=== PATIENT | male | born 2000 | race Asian ===

== ENCOUNTER 2022-11-15 10:46 | Emergency (ER) | payer MEDICAID, SELFPAY ==
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
[2022-11-15 11:21] VITALS: BP 127/58; PULSE 88; RESP 18; TEMP 37.3; O2SAT 98; BMI 21.7
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
--- NOTE | 2022-11-15 11:44 | PC.NURSE ---
viral swabs obtained- pt sts he has had subjective fevers, n/v/d x5 days. sts that he had 5 episodes of vomiting last night. pt sts that he took tylenol and something else my mom gave me [facility]
[2022-11-15 12:01] LABS: IDNOW Serial# BCCEAD1C
[2022-11-15 12:02] LABS: COVID-19 Test Negative (Negative)
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
[2022-11-15] MEDS: 0.9 % Sodium Chloride 1,000 ML 999 ML IV ×2 (13:07→14:21)
[2022-11-15 13:09] LABS: MANUAL DIFF FLAG NO
[2022-11-15] MEDS: ondansetron HCL 4 MG/2 ML VIAL IVPUSH (13:09)
[2022-11-15 13:12] LABS: Basophils Absolute Auto 0.1 X10*3/uL (0.0-0.2); Basophils Percent Auto 0.3 % (0-2); Eosinophils Percent Auto 0.3 % (0-4); Hematocrit 43.7 % (42.0-52.0); Hemoglobin 14.9 g/dl (14.0-18.0); Imm Gran Abs Auto 0.05 X10*3/uL (0.00-0.03); Imm Gran Pct Auto 0.3 % (0.0-0.4); Lymphocytes Absolute Auto 1.1 X10*3/uL (1.2-4.9); Lymphocytes Percent Auto 6.6 % (20-40); Mean Corpuscular HGB Conc 34.1 g/dl (31.0-36.0); Mean Corpuscular Hemoglobin 30.7 pg (27.0-33.0); Mean Corpuscular Volume 90.1 fL (80.0-98.0); Mean Platelet Volume 10.8 fL (9.4-12.4); Monocytes Absolute Auto 1.5 X10*3/uL (0.1-1.2); Monocytes Percent Auto 9.1 % (2-11); Neutrophils Absolute Auto 13.3 x10*3/uL (2.0-8.3); Neutrophils Percent Auto 83.4 % (45-73); Platelet Count 199 X10*3/uL (160-400); Red Blood Count 4.85 X10*6/uL (4.60-5.80); Red Cell Distribution Width 11.8 % (11.0-16.0)
--- NOTE | 2022-11-15 13:13 | PC.NURSE ---
pt medicated per MAR - 20G IV placed in r- AC infusing 1L IVF as ordered
[2022-11-15 13:17] LABS: INTERNATIONAL NORM RATIO 1.1 (0.9-1.1); Prothrombin Time 13.7 SEC (11.1-13.3)
[2022-11-15 13:29] LABS: IDNOW Serial# BCCEAD1C; Influenza A Negative (Negative); Influenza B2 Negative (Negative)
[2022-11-15 13:31] LABS: Lactic Acid 0.9 mmol/L (0.5-2.0)
[2022-11-15 13:35] LABS: Anion Gap 16 (12-20); Blood Urea Nitrogen 13 mg/dL (9-16); C Reactive Protein 6.13 mg/dL (< or = 0.50); Calcium 9.8 mg/dL (8.4-10.2); Carbon Dioxide 25 mmol/L (22-29); Chloride 97 mmol/L (96-108); Creatinine Clr Calc Pharmacy 136.1; Estimated Glomerular Filt Rate > 60; Glucose Random 99 mg/dL (60-115); Potassium 3.6 mmol/L (3.3-5.1); Sodium 134 mmol/L (135-145)
[2022-11-15 13:46] VITALS: BP 120/51; PULSE 87; RESP 18; TEMP 37.2; O2SAT 100
[2022-11-15] MEDS: Ketorolac Tromethamine 15 MG/ML VIAL IVPUSH (13:47)
[2022-11-15 13:52] LABS: Erythrocyte Sedimentation Rate 11 MM/HR (0-15)
[2022-11-15] MEDS: ceFAZolin Sodium/Dextrose,Iso 2 GM/50 ML PIGGYBACK IV (14:11)
--- NOTE | 2022-11-15 15:14 | PC.NURSE ---
no further episodes of vomitting- pt verbalizes his nausea has improved- has been able to sip water without difficulty- provider aware- no new orders at this time
== END 2022-11-15 15:34 | disposition home or self-care (01) ==
PROVIDERS: Nurse Practitioner Family; Registered Nurse Emergency; Emergency Provider Student in an Organized Health Care Education/Training Program
DX: S06.0XAA Concussion with loss of consciousness status unknown, initial encounter (principal); S50.312A Abrasion of left elbow, initial encounter; S20.419A Abrasion of unspecified back wall of thorax, initial encounter; V28.09XA Other motorcycle driver injured in noncollision transport accident in nontraffic accident, initial encounter; M71.522 Other bursitis, not elsewhere classified, left elbow; K52.9 Noninfective gastroenteritis and colitis, unspecified; M79.18 Myalgia, other site; R51.9 Headache, unspecified; F17.200 Nicotine dependence, unspecified, uncomplicated; F12.90 Cannabis use, unspecified, uncomplicated; Z20.822 Contact with and (suspected) exposure to COVID-19; Y93.89 Activity, other specified; Y92.411 Interstate highway as the place of occurrence of the external cause; Y99.9 Unspecified external cause status
CPT/HCPCS: 36415; 70450; 73080; 80048; 83605; 83735; 85025; 85610; 85652; 86140; 87040; 87502; 87635; 96361; 96365; 96375; 99284; J0690; J1885; J2405

== ENCOUNTER 2022-11-18 12:47 | Inpatient (IN) | payer MEDICAID, SELFPAY ==
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
[2022-11-18 12:57] VITALS: BP 137/86; PULSE 87; RESP 20; TEMP 37; O2SAT 99; BMI 23.1
[2022-11-18 13:38] LABS: MANUAL DIFF FLAG NO
[2022-11-18 13:40] LABS: Basophils Percent Auto 0.3 % (0-2); Eosinophils Absolute Auto 0.2 X10*3/uL (0.0-0.4); Eosinophils Percent Auto 2.2 % (0-4); Hematocrit 40.9 % (42.0-52.0); Hemoglobin 13.8 g/dl (14.0-18.0); Imm Gran Abs Auto 0.03 X10*3/uL (0.00-0.03); Imm Gran Pct Auto 0.3 % (0.0-0.4); Lymphocytes Absolute Auto 1.4 X10*3/uL (1.2-4.9); Lymphocytes Percent Auto 15.3 % (20-40); Mean Corpuscular HGB Conc 33.7 g/dl (31.0-36.0); Mean Corpuscular Hemoglobin 30.7 pg (27.0-33.0); Mean Corpuscular Volume 90.9 fL (80.0-98.0); Mean Platelet Volume 10.7 fL (9.4-12.4); Monocytes Absolute Auto 0.8 X10*3/uL (0.1-1.2); Monocytes Percent Auto 8.7 % (2-11); Neutrophils Absolute Auto 6.8 x10*3/uL (2.0-8.3); Neutrophils Percent Auto 73.2 % (45-73); Platelet Count 207 X10*3/uL (160-400); Red Cell Distribution Width 11.7 % (11.0-16.0); White Blood Count 9.2 X10*3/uL (4.8-10.8)
[2022-11-18 13:58] LABS: Anion Gap 13 (12-20); Blood Urea Nitrogen 9 mg/dL (9-16); C Reactive Protein 4.16 mg/dL (< or = 0.50); Carbon Dioxide 26 mmol/L (22-29); Chloride 106 mmol/L (96-108); Creatinine Clr Calc Pharmacy 163.9; Estimated Glomerular Filt Rate > 60; Glucose Random 90 mg/dL (60-115); Sodium 141 mmol/L (135-145)
[2022-11-18 14:01] LABS: Lactic Acid 3.4 mmol/L (0.5-2.0)
[2022-11-18 14:03] VITALS: BP 120/74; PULSE 80; RESP 16; TEMP 36.6; O2SAT 100
[2022-11-18 14:29] LABS: Erythrocyte Sedimentation Rate 38 MM/HR (0-15)
[2022-11-18] MEDS: 0.9 % Sodium Chloride 2,449.41 ML 2449.41 ML IV (14:33)
[2022-11-18] MEDS: Ampicillin Sodium/Sulbactam Na 3 GM in 0.9 % Sodium Chloride 100 ML IV (14:35)
[2022-11-18 14:47] VITALS: BP 107/48; PULSE 77; RESP 18; TEMP 36.9; O2SAT 100
--- NOTE | 2022-11-18 14:49 | PC.NURSE ---
pt reports worsening redness/swelling of L. elbow from previous visit. vss, respirations even and unlabored, afebrile. pt denies n/v/d/cp/sob. no drainage/open wound noted of elbow. unable to fully extend L. arm; denies numbness/tingling of L. hand/arm. +pulses. mom at bedside. cultures/labs drawn; iv established; ivf and abx infusing. all needs met at this time. call shukla within reach.
[2022-11-18 15:37] LABS: Reflex Lactate? Lactic Acid Added
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
[2022-11-18 16:34] LABS: ~Lactic Acid-LAB USE ONLY 0.8 mmol/L (0.5-2.0)
[2022-11-18] MEDS: Acetaminophen 325 MG TABLET 650 MG PO (16:48)
--- NOTE | 2022-11-18 16:56 | PHA.MEDREC ---
Pharmacy Consult ? Medication Reconciliation Pharmacy has completed the medication reconciliation. Patient only taking medications that were recently prescribed. Fatoumata Brasher, MaliaD
[2022-11-18 17:27] VITALS: BP 110/45; PULSE 71; RESP 16; TEMP 37.1; O2SAT 99
--- NOTE | 2022-11-18 18:05 | PC.NURSE ---
report to s3 RN.
[2022-11-18 18:31] VITALS: BP 135/62; PULSE 88; RESP 16; TEMP 36.4; O2SAT 99
[2022-11-18] MEDS: Ketorolac Tromethamine 30 MG/ML VIAL IVPUSH (20:53)
[2022-11-19] MEDS: 0.9 % Sodium Chloride Flush 3 ML SYRINGE IVFLUSH ×4 (00:41→20:21)
[2022-11-19 03:16] VITALS: BP 106/56; PULSE 62; RESP 18; TEMP 36.5; O2SAT 99
[2022-11-19 06:01] LABS: MANUAL DIFF FLAG NO
[2022-11-19 06:03] LABS: Basophils Percent Auto 0.4 % (0-2); Eosinophils Absolute Auto 0.4 X10*3/uL (0.0-0.4); Eosinophils Percent Auto 5.2 % (0-4); Hematocrit 40.1 % (42.0-52.0); Hemoglobin 13.3 g/dl (14.0-18.0); Imm Gran Abs Auto 0.02 X10*3/uL (0.00-0.03); Imm Gran Pct Auto 0.3 % (0.0-0.4); Lymphocytes Absolute Auto 1.6 X10*3/uL (1.2-4.9); Lymphocytes Percent Auto 19.6 % (20-40); Mean Corpuscular HGB Conc 33.2 g/dl (31.0-36.0); Mean Corpuscular Hemoglobin 30.3 pg (27.0-33.0); Mean Corpuscular Volume 91.3 fL (80.0-98.0); Mean Platelet Volume 10.4 fL (9.4-12.4); Monocytes Absolute Auto 0.7 X10*3/uL (0.1-1.2); Monocytes Percent Auto 9.2 % (2-11); Neutrophils Absolute Auto 5.2 x10*3/uL (2.0-8.3); Neutrophils Percent Auto 65.3 % (45-73); Platelet Count 240 X10*3/uL (160-400); Red Blood Count 4.39 X10*6/uL (4.60-5.80); Red Cell Distribution Width 11.6 % (11.0-16.0); White Blood Count 7.9 X10*3/uL (4.8-10.8)
[2022-11-19 06:28] LABS: Anion Gap 10 (12-20); Blood Urea Nitrogen 8 mg/dL (9-16); Calcium 10.1 mg/dL (8.4-10.2); Carbon Dioxide 28 mmol/L (22-29); Chloride 107 mmol/L (96-108); Creatinine Clr Calc Pharmacy 161.9; Estimated Glomerular Filt Rate > 60; Glucose Random 115 mg/dL (60-115); Potassium 5.1 mmol/L (3.3-5.1); Sodium 140 mmol/L (135-145)
[2022-11-19 07:21] VITALS: BP 116/67; PULSE 64; RESP 16; TEMP 36.4; O2SAT 100
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
[2022-11-19 15:06] VITALS: BP 130/76; PULSE 93; RESP 18; TEMP 36.9; O2SAT 100
--- NOTE | 2022-11-19 15:32 | MHC.CM.PN ---
pt lives with parents is indepdent has own ride dc plan home no servceis
--- NOTE | 2022-11-19 16:19 | MHC.CM.PN ---
DC PLAN IS HOME Thursday11/20/22 ON PO ABX.
[2022-11-19 19:16] VITALS: BP 133/63; PULSE 80; RESP 16; TEMP 36.3; O2SAT 100
[2022-11-19] MEDS: guaiFENesin LA 600 MG TAB.ER.12H PO (20:20)
[2022-11-19] MEDS: Acetaminophen 325 MG TABLET 650 MG PO (20:26)
[2022-11-19] MEDS: Melatonin 3 MG TABLET 6 MG PO (22:47)
--- NOTE | 2022-11-20 00:02 | PC.NURSE ---
Pt in room 375 asked for sleep med melatonin. Dr. Alejandre was notified. He ordered PRN melatoin
[2022-11-20 03:49] VITALS: BP 113/54; PULSE 67; RESP 16; TEMP 36.2; O2SAT 100
[2022-11-20 07:12] VITALS: BP 114/56; PULSE 79; RESP 16; TEMP 36.7; O2SAT 100
[2022-11-20] MEDS: 0.9 % Sodium Chloride Flush 3 ML SYRINGE IVFLUSH (08:29)
[2022-11-20] MEDS: guaiFENesin LA 600 MG TAB.ER.12H PO (08:29)
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
--- NOTE | 2022-11-20 09:29 | MHC.CM.PN ---
PT TO DC HOME TODAY ON PO ABX VIA FAMILY TRANSPORT
== END 2022-11-20 13:05 | disposition home or self-care (01) | DRG 383 ==
LOC: HO.ED 15:46 → HO.EDOVER 16:35 → HO.IMC 18:00 → HO.S3 18:01
PROVIDERS: Registered Nurse Emergency; Admitting Provider Physician Assistant; Emergency Provider Emergency Medicine; Visit Provider Internal Medicine
DX: L03.114 Cellulitis of left upper limb (principal); S06.0X9A Concussion with loss of consciousness of unspecified duration, initial encounter; M71.122 Other infective bursitis, left elbow; Z71.6 Tobacco abuse counseling; V29.99XA Rider (driver) (passenger) of other motorcycle injured in unspecified traffic accident, initial encounter
CPT/HCPCS: 36415; 80048; 83605; 85025; 85652; 86140; 87040; 99221; 99285; J0295; J0690; J1885

== ENCOUNTER → 2022-11-18 16:10 | Outpatient (BNV) | payer MEDICAID, SELFPAY | PROVIDERS: Admitting Provider Physician Assistant; Emergency Provider Emergency Medicine; Visit Provider Physician Assistant | DX: M71.122 Other infective bursitis, left elbow (principal); V29.99XA Rider (driver) (passenger) of other motorcycle injured in unspecified traffic accident, initial encounter; L03.90 Cellulitis, unspecified | CPT/HCPCS: 99221; 99231 ==

== ENCOUNTER → 2022-11-18 16:10 | Outpatient (BNV) | payer MEDICAID, SELFPAY | PROVIDERS: Admitting Provider Physician Assistant; Emergency Provider Emergency Medicine; Visit Provider Physician Assistant | DX: M71.122 Other infective bursitis, left elbow (principal); V29.99XA Rider (driver) (passenger) of other motorcycle injured in unspecified traffic accident, initial encounter; L03.90 Cellulitis, unspecified | CPT/HCPCS: 99223; 99232; 99239 ==

== ENCOUNTER 2022-11-28 11:08 | Outpatient (AMB) | payer MEDICAID, SELFPAY ==
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
[2022-11-28 11:23] VITALS: BMI 23.1
== END 2022-11-28 12:00 | disposition home or self-care (01) ==
PROVIDERS: Visit Provider Physician Assistant
DX: M71.122 Other infective bursitis, left elbow (principal)
CPT/HCPCS: 99213

== ENCOUNTER → 2022-11-28 11:08 | Outpatient (BNVA) | payer MEDICAID, SELFPAY | PROVIDERS: Visit Provider Physician Assistant | DX: M71.122 Other infective bursitis, left elbow (principal) | CPT/HCPCS: 99212 ==